=== PATIENT | female | born 1965 | race Two or more races ===

== ENCOUNTER 2020-03-30 23:39 | Emergency (ER) | payer OTHER ==
[2020-03-30 23:44] VITALS: BP 171/70; PULSE 71; TEMP 99.1; BMI 28.6
--- NOTE | 2020-03-30 23:44 | PDOC ---
Rapid Medical Evaluation Chief Complaint: Pain, Acute Time Seen by Provider: 03/30/20 23:41 Medical Evaluation: Allergies Allergy/AdvReac Type Severity Reaction Status Date / Time No Known Allergies Allergy Verified 01/22/15 17:23 03/30/20 23:41 54 year old female with right arm pain (shoulder to wrist) x3 weeks. patient took ibuprofen 1 hour ago. deneis trauma of injury Last Vital Signs Temp Pulse Resp BP Pulse Ox 99.1 F 71 18 171/70 H 100 03/30/20 23:41 03/30/20 23:41 03/30/20 23:41 03/30/20 23:41 03/30/20 23:41 PE; patient alert ox3. full rom A: right arm pain P: patient to the ER for further management of care. 03/30/20 23:44 Discharge Disposition - Diagnosis Right arm pain - Referrals - Patient Instructions - Post Discharge Activity
--- NOTE | 2020-03-30 23:45 | PDOC ---
History of Present Illness - General Chief Complaint: Pain, Acute Stated Complaint: R/ARM/PAIN/DIZZY Time Seen by Provider: 03/30/20 23:41 History Source: Patient - History of Present Illness Initial Comments: 03/31/20 00:36 54-year-old female with chronic right arm pain for the last 3 years. Patient reports that she has followed up with neurology at the time and had negative results and was told that she has inflammation of her arm. Patient reports for the last 2 weeks she has been having increased pain to the right arm from shoulder to wrist. Reports feeling of cracking to her arms. Denies trauma or injury. Past medical history prediabetic currently not on meds Past History - Medical History Allergies/Adverse Reactions: Allergies Allergy/AdvReac Type Severity Reaction Status Date / Time No Known Allergies Allergy Verified 03/30/20 23:44 Home Medications: Ambulatory Orders Fexofenadine HCl [Rbuina] 180 mg PO DAILY #30 tablet 01/22/15 Fluticasone Prop 0.05% Nasal [Flonase -] 1 - 2 spray NS BID #1 spray.pump 01/22/15 Ketotifen Fumarate [Zaditor] 1 drop OU BID #1 bottle 01/22/15 Tramadol HCl [Ultram] 50 mg PO TID PRN #8 tablet MDD 3 03/31/20 COPD: No - Psycho-Social/Smoking History Smoking History: Current some day smoker Have you smoked in the past 12 months: Yes Number of Cigarettes Smoked Daily: 1 Information on smoking cessation initiated: Yes - Substance Abuse Hx (Audit-C & DAST Scrn) How often the patient has a drink containing alcohol: Never Score: In Men: 4 or > Positive; In Women: 3 or > Positive: 0 Screen Result (Pos requires Nsg. Audit-10AR): Negative In the last yr the pt used illegal drug/Rx for NonMed reason: No Score: Yes response is considered Positive: 0 Screen Result (Positive result requires Nsg. DAST-10): Negative Review of Systems - Review of Systems Able to Perform ROS?: Yes Is the patient limited Serbian proficient: No Musculoskeletal: Yes: Other (Right arm pain) *Physical Exam - Vital Signs Last Vital Signs Temp Pulse Resp BP Pulse Ox 99.1 F 71 18 171/70 H 100 03/30/20 23:41 03/30/20 23:41 03/30/20 23:41 03/30/20 23:41 03/30/20 23:41 - Physical Exam General Appearance: Yes: Appropriately Dressed Respiratory/Chest: positive: Lungs Clear, Normal Breath Sounds Musculoskeletal: positive: Normal Inspection. negative: Vertebral Tenderness Integumentary: positive: Normal Color, Dry, Warm, Other (Positive distal pulseRight arm warm to touch and full ROM. Patient does have pain to the right arm with movement. ) Neurologic: positive: tar worker II-XII NML intact, Fully Oriented, Alert, Normal Mood/Affect, Normal Response, Motor Strength 5/5, Other (equal sensation). negative: Sensory Deficit ED Progress Note - Progress Note Progress Note: 03/31/20 02:40 A: chronic right arm pain P: pain control outpatient neurology and ortho referral given Discharge - Discharge Information Problems reviewed: Yes Clinical Impression/Diagnosis: Right arm pain Disposition: HOME - Additional Discharge Information Prescriptions: Tramadol HCl [Ultram] 50 mg PO TID PRN #8 tablet MDD 3 PRN Reason: Pain - Follow up/Referral Referrals: Paresh Arreguin MD [Staff Physician] - Call tomorrow Nick Borja MD [Staff Physician] - Call tomorrow - Patient Discharge Instructions Patient Printed Discharge Instructions: DI for Arm Pain Additional Instructions: wear a compression stocking to the right arm throughout the day as tolerated. Take ibuprofen every 6 hours as needed for pain Take tramadol for more severe pain. Tramadol can make you sleepy. Do not drive or operate any heavy machinery after taking the medication. Follow-up with your doctor as soon as possible. A referral was given to you for neurologist and orthopedic doctor please follow- up with them Return to the emergency room for any worsening symptoms - Post Discharge Activity Work/Back to School Note: Back to Work
[2020-03-30] MEDS ORDERED: ACETAMINOPHEN 500 MG TABLET (FP) PO ONE (23:46)
[2020-03-31] MEDS ORDERED: ACETAMINOPHEN 325 MG TABLET (FP) ONE (00:16)
[2020-03-31] MEDS ORDERED: traMADol HCL 50 MG TABLET PO ONE (00:36)
[2020-03-31] MEDS ORDERED: traMADol HCL 50 MG TABLET ONE (00:39)
== END 2020-03-31 00:47 | disposition home or self-care (01) ==
LOC: JER 23:39
DX: M79.601 Pain in right arm (principal)
CPT/HCPCS: 99283-25